=== PATIENT | female | born 1985 | race Caucasian/White ===

== ENCOUNTER 2021-02-11 08:43 | Emergency (ER) | payer OTHER ==
[2021-02-11] MEDS ORDERED: Lidocaine 1% 10 ML MDV INJECT ONE (08:59)
--- NOTE | 2021-02-11 09:39 | EDM.PDOC ---
ED HPI GENERAL MEDICAL PROBLEM - General Chief Complaint: Upper Extremity Injury/Pain Stated Complaint: L INDEX FINGER LAC Time Seen by Provider: 02/11/21 08:56 Source of Information: Reports: Patient History Limitations: Reports: No Limitations - History of Present Illness INITIAL COMMENTS - FREE TEXT/NARRATIVE: The patient presents with a laceration to her left index finger. She was lifting a brick and she got her finger between the brick and some metal. She tore part of her nail out and there is a laceration nearly around the whole finger. She is right handed. Her tetanus is up to date. Onset: Sudden Duration: Minutes: Location: Reports: Upper Extremity, Left (index finger) Quality: Reports: Sharp Severity: Moderate Improves with: Reports: None Worsens with: Reports: None Associated Symptoms: Reports: No Other Symptoms Left Finger-Index Pain Score (Numeric/FACES): 6 - Related Data Allergies Allergy/AdvReac Type Severity Reaction Status Date / Time No Known Allergies Allergy Verified 02/11/21 08:59 Home Meds: Home Meds . [No Known Home Meds] 02/11/21 [History] Review of Systems - Review of Systems Review Of Systems: See Below Constitutional: Reports: No Symptoms Eyes: Reports: No Symptoms Ears: Reports: No Symptoms Nose: Reports: No Symptoms Mouth/Throat: Reports: No Symptoms Respiratory: Reports: No Symptoms Cardiovascular: Reports: No Symptoms GI/Abdominal: Reports: No Symptoms Genitourinary: Reports: No Symptoms Musculoskeletal: Reports: Other (laceration to the left index finger) ED EXAM, GENERAL - Physical Exam Exam: See Below Exam Limited By: No Limitations General Appearance: Alert, No Apparent Distress Ears: Normal External Exam Nose: Normal Inspection Head: Atraumatic, Normocephalic Neck: Normal Inspection Respiratory/Chest: No Respiratory Distress Extremities: Other (The naild is tore out of the skin and there is a laceration on either side of the nail to the andersen aspect of the finger. It does not go all the way around the finger. She still has sensation and capillary refill distally.) ED TRAUMA EXTREMITY PROCEDURES - Laceration/Wound Repair Left Digit - 2nd (Index) Lac/Wound Length In cm: 2 Appearance: Subcutaneous, Irregular Distal NVT: Neuro & Vascular Intact, No Tendon Injury Anesthetic Type: Digital Local Anesthesia - Lidocaine (Xylocaine): 1% Plain Skin Prep: Saline Exploration/Debridement/Repair: Wound Explored, In a Bloodless Field, Explored to Base Closed With: Sutures Suture Size: 4-0 # of Sutures: 5 Suture Type: Nylon, Interrupted, Simple Tetanus Status Addressed: Yes Complications: No Course - Vital Signs Last Recorded V/S: Last Vital Signs Temp 98.5 F 02/11/21 08:56 Pulse 60 02/11/21 08:56 Resp 16 02/11/21 08:56 BP 124/83 02/11/21 08:56 Pulse Ox 100 02/11/21 08:56 - Orders/Labs/Meds Meds: Medications Discontinued Medications Generic Name Dose Route Start Last Admin Trade Name Freq PRN Reason Stop Dose Admin Lidocaine HCl 10 ml 02/11/21 08:59 02/11/21 09:26 Lidocaine 1% 10 Ml Mdv INJECT 02/11/21 09:00 10 ml ONETIME ONE Administration - Re-Assessments/Exams Free Text/Narrative Re-Assessment/Exam: 02/11/21 09:39 I will do a digital block and fix the finger. 02/11/21 09:58 I will up date her tetanus. Departure - Departure Time of Disposition: 10:00 Disposition: Home, Self-Care 01 Condition: Good Clinical Impression: Laceration of left index finger Qualifiers: Encounter type: initial encounter Damage to nail status: with damage Foreign body presence: without foreign body Qualified Code(s): S61.311A - Laceration without foreign body of left index finger with damage to nail, initial encounter - Discharge Information *PRESCRIPTION DRUG MONITORING PROGRAM REVIEWED*: Not Applicable *COPY OF PRESCRIPTION DRUG MONITORING REPORT IN PATIENT ANIVAL: Not Applicable Referrals: PCP,None [Primary Care Provider] - Petar Florentino MD [Physician] - 1 Week Forms: ED Department Discharge Additional Instructions: Your tetanus has been updated today. You are good for 10 years. Soak your finger in warm soapy water 2 times per day and apply antibiotic ointment after. Have the sutures removed within a week. Look for any signs of infection such as redness, swelling, drainage or pain. If you see any of these signs please return or see your doctor. You may need oral antibiotics. You will loose your nail and you may not get another back. Time will tell. Sepsis Event Note (ED) - Evaluation Sepsis Screening Result: No Definite Risk - Focused Exam Vital Signs: Vital Signs Temp Pulse Resp BP Pulse Ox 02/11/21 08:56 98.5 F 60 16 124/83 100
[2021-02-11] MEDS ORDERED: Diphtheria,Pertussis(Acell),Tetanus Vaccine 0.5 ML Syringe IM ONE (09:58)
== END 2021-02-11 10:10 | disposition home or self-care (01) ==
LOC: JD.ED 08:43
DX: S61.311A Laceration without foreign body of left index finger with damage to nail, initial encounter (principal); Z23 Encounter for immunization; W23.0XXA Caught, crushed, jammed, or pinched between moving objects, initial encounter
CPT/HCPCS: 12001; 90471; 90715; 99282-25

== ENCOUNTER 2022-10-24 12:57 | Emergency (ER) | payer BC, OTHER ==
[2022-10-24] MEDS ORDERED: Iopamidol 612 MG/ML 30 ML SDV IVPUSH ONE ×2 (13:41)
[2022-10-24 14:11] LABS: BASOPHILS ABSOLUTE AUTO 0.02 K/mm3 (0.01-0.08); BASOPHILS PERCENT AUTO 0.2 % (0.1-1.2); EOSINOPHILS ABSOLUTE AUTO 0.08 K/mm3 (0.04-0.36); HEMATOCRIT 41.5 % (34.1-44.9); HEMOGLOBIN 13.1 gm/dl (11.2-15.7); IMMATURE GRAN ABSOLUTE AUTO 0.01 K/mm3 (0.00-0.10); IMMATURE GRAN PERCENT AUTO 0.1 % (<=1.0); LYMPHOCYTES ABSOLUTE AUTO 1.34 K/mm3 (1.18-3.74); LYMPHOCYTES PERCENT AUTO 16.5 % (19.3-51.7); MEAN CORPUSCULAR HEMOGLOBIN 27.9 pg (25.6-32.2); MEAN CORPUSCULAR HGB CONC 31.6 g/dl (32.2-35.5); MEAN CORPUSCULAR VOLUME 88.5 fl (79.4-94.8); MEAN PLATELET VOLUME 9.2 fl (9.4-12.3); MONOCYTES ABSOLUTE AUTO 0.73 K/mm3 (0.24-0.36); NEUTROPHILS ABSOLUTE AUTO 5.96 K/mm3 (1.56-6.13); NEUTROPHILS PERCENT AUTO 73.2 % (34.0-71.1); PLATELET COUNT,PLT 374 K/mm3 (182-369); RED BLOOD CELL COUNT 4.69 M/mm3 (3.98-5.22); WHITE BLOOD CELL COUNT,WBC 8.14 K/mm3 (3.98-10.04)
[2022-10-24 14:12] LABS: APPEARANCE,URINE SLT CLOUDY (Clear); BILIRUBIN,URINE NEGATIVE (Negative); COLOR,URINE YELLOW (Yellow); GLUCOSE,URINE NEGATIVE (Negative); KETONES,URINE NEGATIVE (Negative); LEUKOCYTE ESTERASE,URINE NEGATIVE (Negative); NITRITE,URINE NEGATIVE (Negative); OCCULT BLOOD,URINE NEGATIVE (Negative); PH,URINE 7.5 (5.0-8.0); PROTEIN,URINE NEGATIVE (Negative); UROBILINOGEN,URINE 0.2 (0.2-1.0)
[2022-10-24 14:21] LABS: AMORPHOUS SEDIMENT,URINE FEW /hpf (NOT SEEN); BACTERIA,URINE RARE /hpf (FEW); EPITHELIAL CELLS,URINE 0-5 /hpf (0-5); MUCUS,URINE FEW /hpf (FEW); RBC,URINE 0-5 /hpf (0-5); WBC,URINE 0-5 /hpf (0-5)
[2022-10-24 14:34] LABS: A/G RATIO 0.9 (1-2); ALANINE AMINOTRANSFERASE,ALT 27 U/L (14-59); ALBUMIN 3.8 g/dl (3.4-5.0); ALKALINE PHOSPHATASE 95 U/L (46-116); ANION GAP 13.2 (5-15); ASPARTATE AMNIOTRANSFERASE,AST 18 U/L (15-37); BILIRUBIN TOTAL 0.3 mg/dL (0.2-1.0); BLOOD UREA NITROGEN,BUN 12 mg/dL (7-18); BUN/CREATININE RATIO 13.3 (14-18); CALCIUM 10.1 mg/dL (8.5-10.1); CARBON DIOXIDE,CO2 27 mEq/L (21-32); CHLORIDE,CL 104 mEq/L (98-107); CREATININE 0.9 mg/dL (0.55-1.02); ESTIMATED GFR 84 mL/min (>60); GLUCOSE RANDOM 96 mg/dL (70-99); POTASSIUM,K 4.2 mEq/L (3.5-5.1); PROTEIN TOTAL,TP 8.2 g/dl (6.4-8.2); SODIUM,NA 140 mEq/L (136-145)
== END 2022-10-24 16:10 | disposition home or self-care (01) ==
LOC: JD.ED 12:57
DX: R59.0 Localized enlarged lymph nodes (principal); K08.89 Other specified disorders of teeth and supporting structures; F17.210 Nicotine dependence, cigarettes, uncomplicated; E66.9 Obesity, unspecified
CPT/HCPCS: 36415; 70491; 80053; 81001; 84703; 85025; 86140; 99284; Q9967